=== PATIENT | male | born 1970 | race Caucasian/White ===

== ENCOUNTER 2019-03-18 14:05 | Emergency (ER) | payer OTHER ==
[~2019-03-18] VITALS: Ht 177.8 cm; Wt 86.2 kg
[2019-03-18] MEDS ORDERED: LIDOCAINE 1% HCL (LOCAL ANESTH.) INJ 20ML MDV IJ ONE ×2 (17:15→17:30)
[2019-03-18] MEDS ORDERED: BACITRACIN TOP OINT 1 UD PKG TOP ONE (17:15)
[2019-03-18] MEDS ORDERED: TETANUS-DIPTH-ACEL PERTUSSIS 0.5ML SYRG IM ONE (17:30)
[2019-03-18] MEDS ORDERED: KETOROLAC TROMETH 60MG/2ML VIAL IM ONE (17:30)
[2019-03-18 18:28] VITALS: BP 144/97
== END 2019-03-18 18:36 | disposition home or self-care (01) ==
LOC: ER 14:05 → EDBD 14:05 → ER 18:36
DX: S81.811A Laceration without foreign body, right lower leg, initial encounter (principal); W26.9XXA Contact with unspecified sharp object(s), initial encounter; Y93.55 Activity, bike riding; Y99.8 Other external cause status; Y92.89 Other specified places as the place of occurrence of the external cause
CPT/HCPCS: 12004; 73590; 90471; 90715; 96372; 99283; J1885; J2001